=== PATIENT | male | born 1950 | race Caucasian/White ===

== ENCOUNTER → 2017-02-02 | Outpatient (CLI) | payer MEDICARE, OTHER ==
[~2017-02-02] MED LIST: AMIODARONE HYD200 MG PO; AMLODIPINE10 MG PO; ASPIRIN EC325 MG PO; AVAPRO75 MG PO; CARVEDILOL12.5 MG PO; CEPHALEXIN MON500 MG PO; DAILY MULTIPLE1 TA8 PO; DIGOXIN0.25 M1 PO; FISH OIL1000 MG PO; FLOMAX0.4 MG PO; HYDROCHLOROTH12.5 M1 PO; IMDUR 30MG. TAB30 MG PO; ISOSORBIDE DINI30 MG PO; LIPITOR40 MG PO; METOPROLOL25 MG PO; MOBIC15 MG PO; PLAVIX75 MG PO; PRAVASTATIN 20M20 MG PO; SPIRONOLACTONE25 M1 PO; XARELTO20 MG PO
--- NOTE | 2017-02-08 08:39 | RADIOLOGY REPORT PS360 ---
MRI-LOW EXT ANY JOINT W/O-LT MRI LEFT KNEE HISTORY: PRIMARY OSTEOARTHRITIS OF LEFT KNEE . Lateral knee pain 1 month pain with bending or extending knee.Patient Age: 66 years: Male Ordering Physician: TINY KOROMA MD TECHNIQUE: Multiplanar multisequence imaging performed on 1.5 Shandra MRI.. Left knee COMPARISON :3 views the left knee 12/26/2016 FINDINGS Plain films from 12/26/2016 showed joint space narrowing most evident at the medial compartment MRI from 01/12/2017 showed prominent bone marrow edema beneath tibial spines most evident as well as beneath medial tibial plateau. . Today's MR shows a collection of numerous subchondral, degenerative cyst seen beneath the PCL insertion and beneath the posterior tibial spine region,, with bone edema surrounding this and extending anteriorly towards the region beneath the anterior tibial spine. This collection of subchondral cyst spans up to 3.5 cm AP within the distal bone edema extending even further beyond this with overall signal abnormalities here for 0.5 cm AP.. There are some subchondral cystic changes beneath the ACL insertion as well. It On the detailed angled ACL views ( along with the coronal views) it appears ACL may indeed remain intact although increased signal at its inferior aspect/anterior tibial spine insertion region. Difficult to exclude partial tear in this latter area. The PCL has slight increased signal throughout which could reflect interstitial tear here. MEDIAL COMPARTMENT. Osteoarthritis most pronounced medial compartment . Diffuse chondral thinning & scuffing throughout the medial compartment with associated medial meniscal tear. Extensive increased signal, reactive bone changes are seen on both both sides narrowed joint space, but most pronounced at medial aspect medial tibial plateau,. Lesser pronounced reactive bone changes along with scattered small osteochondral irregularities are seen at the posterior aspect of the medial femoral condyle... Extensive MEDIAL MENISCAL TEAR, involving body and posterior horn. Degeneration, diminution & prominent tear involving body & extending into the posterior horn of medial meniscus evident- only small fragments remaining peripherally in this region. I do not see a well-defined meniscal flap or meniscal fragment but certainly could arise a with this pattern. Lateral compartment. Mild chondral thinning most evident towards the notch. The lateral meniscus for the most part is intact.. Only question of possible tiny minor meniscal tear involving the inferior surface posterior horn as it approaches the meniscal root. This is noted on sagittal images. MCL & lateral collateral ligaments appear intact. Generous joint effusion most notable at suprapatella bursa. Only small Peterson's cyst/synovial cyst formation extending superior to the knee and residing to the insertion of the medial head of gastrocnemius on sagittal and 12 axial image 8, 7. .. Patellofemoral joint. The cartilage seems to be fairly well-maintained at the posterior patella with only some mild signal changes and possible minor chondral irregularity at the lateral facet. But unimpressive. Minimal spurring about the margins of patella. Normal position patella. Patellar tendon and quadriceps tendon grossly unremarkable. There is some mild edema anterior to, overlying patellar tendon across correlation. 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 Prominent degenerative changes at the knee, associated prominent joint effusion. Small Peterson's cyst superior to knee joint surrounding the insertion of the medial head gastrocnemius 2. Most pronounced degenerative changes at the Medial Compartment.. OA here appear to have progressed, since previous radiographs. .Prominent Diffuse chondral thinning & scuffing medial compartment. Prominent associated reactive signal changes & findings on both sides of joint . .Prominent MEDIAL MENISCAL TEAR involving body and posterior horn 2. Numerous subchondral cyst, & geode is seen beneath it the PCL insertion posterior tibial spine and extending to the beneath the anterior tibial spine. This yields a large area of increased bone signal with reactive bone changes surrounding these subchondral cyst. Overall abnormal signal changes span 4.5 cm up to AP, X 3.5 cm transverse here beneath the tibial spines 3. I with the above there appears to be increased signal at inferior ACL likely reflecting mucoid degeneration inferior ACL with some cystic changes at ACL insertion. I do not believe ACL is ruptured.. Most likely remains intact although difficult to confirm such totally. . PCL. Increased interstitial signal which may reflect mucoid degeneration or interstitial tear but but no rupture or transection.. 4.. I do not see a fracture here at proximal tibia as questioned on previous MRI
== END ==
LOC: RAD 10:14
DX: M17.12 Unilateral primary osteoarthritis, left knee (principal)

== ENCOUNTER → 2017-02-19 | Outpatient (CLI) | payer MEDICARE, OTHER ==
--- NOTE | 2017-02-19 11:08 | RADIOLOGY REPORT PS360 ---
CHEST(2 VIEWS-NOT PORTABLE) HISTORY: ASHD, AFIB, AMIODRONE THERAPY, HTN, SOB ORDERING PHYSICIAN: MONIQUE SEN MD PATIENT AGE: 66 years COMPARISON: 04/04/2016 FINDINGS: The cardiomediastinal silhouette and pulmonary vascularity are within normal limits. The lungs are clear without infiltrates, suspicious nodules, or pleural effusions. No acute bony abnormalities. No evidence of pulmonary fibrosis IMPRESSION: No change with no acute finding.
[2017-02-19 13:04] LABS: BILIRUBIN, INDIRECT 0.58 mg/dL (0-0.9)
== END ==
LOC: LAB 10:25
PROVIDERS: Internal Medicine Cardiovascular Disease
DX: I25.10 Atherosclerotic heart disease of native coronary artery without angina pectoris (principal); I48.91 Unspecified atrial fibrillation; I10 Essential (primary) hypertension; E78.5 Hyperlipidemia, unspecified; G47.33 Obstructive sleep apnea (adult) (pediatric); Z79.899 Other long term (current) drug therapy

== ENCOUNTER → 2017-02-22 | Outpatient (CLI) | payer MEDICARE, OTHER ==
--- NOTE | 2017-02-22 13:43 | RADIOLOGY REPORT PS360 ---
LOWER LEG-RT HISTORY: RT TIBIA PAIN ORDERING PHYSICIAN: TINY KOROMA MD PATIENT AGE: 66 years COMPARISON: None FINDINGS: Mild osteoarthritic changes are present involving the knee. No acute fracture or dislocation of the tibia or fibula. No lytic or blastic change. There is a well-circumscribed calcific density at the tip of the lateral malleolus consistent with either an old injury or an accessory center of ossification. IMPRESSION: 1. No acute finding. 2. Osteoarthritic changes of the knee. 3. Old fracture versus accessory center of ossification at the tip of the lateral malleolus
== END ==
LOC: RAD 10:51
DX: M89.8X6 Other specified disorders of bone, lower leg (principal)

== ENCOUNTER 2017-04-16 10:43 | Day surgery (SDC) | payer MEDICARE, OTHER ==
[~2017-04-16] VITALS: Ht 182.9 cm; Wt 104.3 kg
--- NOTE | 2017-04-16 16:17 | Anesthesia Record ---
Anesthesia Record Part I Total IV fluids: 1800 EBL (ml): 0 Urine Output: 0 B/P: 149/87 % SaO2: 96 Pulse: 76 Resps: 12 Temp: 98.5 Patient is: Drowsy, Stable Stable to PACU at: 1615 at 1615
--- NOTE | 2017-04-16 16:18 | Anesthesia Record ---
Anesthesia Record Part II Discharge time: 1645 Destination: Same day surgery PACU nurse assessment review? Yes Patient is: Awake, Stable Anesthesia complications? No at 161
--- NOTE | 2017-04-16 16:43 | RADIOLOGY REPORT PS360 ---
KNEE-LIMITED 2 VIEWS-LT HISTORY: CALCIUM SULFATE INJECTION, OR ORDERING PHYSICIAN: TINY KOROMA MD PATIENT AGE: 66 years COMPARISON: None FINDINGS: Multiple images submitted with the C-arm show placement of the needle in the medial intra-articular region of the knee with trochars in both the medial femoral condyle and lateral tibial plateau with injection of hyperdense material into the interspinous region of the proximal tibia and the medial femoral condyle. IMPRESSION: Status post subcondylar injection of the medial femoral condyle and the interspinous region of the proximal tibia
[2017-04-16 18:09] VITALS: BP 147/97
--- NOTE | 2017-04-16 18:58 | Operative Note ---
Procedure/Operative Record Date of Procedure: 04/16/17 Referring physician: Dr. Burdick Pre-op diagnosis: 1. Primary osteoarthritis, Left knee 2. Complex degenerative medial meniscal tear, left knee 3. Chronic bone marrow lesion/microfracture of medial condyle of left femur 4. Chronic bone marrow lesion/microfracture central and medialtibial plateau, left knee Post-op diagnosis: 1. Primary osteoarthritis, Left knee 2. Complex degenerative tear medial meniscus, LEFT knee 3. Complex degenerative tear lateral meniscus, LEFT knee 4. Chronic bone marrow lesion/microfracture of medial condyle, left femur 5. Chronic bone marrow lesion/microfracture central and medialtibial plateau, left knee Procedure performed: 1. Examination of LEFT knee under anesthesia 2. Arthroscopic partial medial meniscectomy, LEFT knee 3. Arthroscopic partial lateral meniscectomy, LEFT knee 4. Arthroscopic chondroplasty, all 3 compartments, LEFT knee 5. Sub-chondroplasty procedure central and medial tibial plateau, LEFT knee 6. Sub-chondroplasty procedure medial femoral condyle, LEFT knee Surgeon: Franci HERRERA, Kurt Prasad Maintenance Instructor(s): Dora Esparza Anesthesia: General Indications: Patient is a 66-year-old male with left knee arthritis. He failed to respond satisfactorily to conservative management. The MRI scan of his LEFT knee is showing chronic bone marrow lesions (reactive bony edema) indicative of stress/ microfractures over medial femoral condyle and medial and central tibial plateau. He also has degenerative changes in all 3 compartments of the knee and degenerative medial meniscal tears. The surgical management option which includes LEFT knee arthroscopy, resection of the torn meniscus, debridement/ chondroplasty as needed and subchondroplasty procedure for the medial femoral condyle and the tibial plateau is indicated to relieve the pain and improve function of his knee. Findings: Examination of the LEFT knee under anesthesia, showed a stable knee joint. Knee range of motion included flexion from 5 to 130; 5 of varus alignment noted. Operative findings showed diffuse grade 2 degenerative changes over the patellofemoral joint and grade 3-4 changes over the medial and lateral compartments. There was significant synovitis and debris in the knee. There was extensive degenerative tearing involving both the medial and lateral menisci. The anterior cruciate ligament was noted to be intact. Correlating the MRI findings with the arthroscopic findings we have decided to perform sub- chondroplasty procedure for the medial femoral condyle and medial and central tibial plateau. Small amount of knee effusion noted. Description of procedure: On the day of the procedure the patient was met in the preoperative area and positively identified. A physical examination was performed and documented. The limb was marked. I again discussed the diagnosis, natural history and management options including both nonsurgical and surgical. I discussed the proposed surgical procedure, risks and benefits and alternatives in detail. The complications discussed include but are not limited to infection, injury to nerves and blood vessels, injury to the ligaments and tendons, knee stiffness, arthrofibrosis, incomplete relief, incomplete functional recovery, DVT, PE, CRPS , complications related to anesthesia including heart attack, stroke and even . I have also discussed about the likely need for further surgery in future. I told him that there were no guarantees with surgery; he could be no better or even worse. We also discussed the postoperative recovery and rehabilitation protocol. I believe the patient to be well informed with regard to the proposed surgery. I told him that it could take few months for full recovery of the knee after surgery. He expressed a full understanding and wished to proceed with the planned surgery. A physical examination was performed and documented. The consent form was reviewed and signed. The patient was brought to the operating room and placed supine on the operating table. All the bony prominences were appropriately padded. A general anesthesia was administered by the anesthesia team. A well-padded tourniquet cuff was placed over the left upper thigh. Examination of the left knee under anesthesia was performed. A small amount of knee effusion was noted. The examination showed a stable knee joint. Knee range of motion included flexion from 5 to 130; 5 of varus alignment noted. The LEFT knee was then prepped and draped in the usual sterile fashion. A preprocedure timeout was performed as per protocol. Administration of prophylactic IV antibiotics was confirmed with the anesthetic team. The arthroscopic portals were marked on the skin. The limb was exsanguinated with Esmarch bandage and the tourniquet was inflated to 300 mmHg- see the nursing notes for tourniquet time. I then made an anterolateral arthroscopic portal and introduced the arthroscope and performed the arthroscopic knee examination. I then created an anteromedial portal under direct vision. Findings included diffuse grade 2 degenerative changes over the patellofemoral joint and grade 3-4 changes over the medial and lateral compartments. There was significant synovitis and debris in the knee. There was extensive degenerative tearing involving both the medial and lateral menisci. The anterior cruciate ligament was noted to be intact. Correlating the MRI findings with the arthroscopic findings we have decided to perform sub- chondroplasty procedure for the medial femoral condyle and medial and central tibial plateau. Small amount of knee joint effusion noted. After performing a thorough arthroscopic examination, I proceeded to perform partial medial and partial lateral meniscectomy and chondroplasty of all 3 compartments. Using the arthroscopic instruments and shaver, I performed the partial medial meniscectomy and partial lateral meniscectomy to a stable margin. I then performed chondroplasty of all 3 compartments using curette and arthroscopic shaver, resecting the loose chondral flaps to a stable edge. We then proceeded to perform sub-chondroplasty procedure for the medial and central tibial plateau and the medial femoral condyle. Using the C-arm control for guidance, I introduced the 3 mm side delivery AccuPort cannula into the medial tibial plateau and advanced it to the center of the tibial plateau. After confirming satisfactory position, I injected premixed (on the back table with saline) AccuFill BSM under fluoroscopic guidance. As I injected, I slowly withdrew the needle to cover the entire central and medial tibial plateau. A total of 8 cc of AccuFill BSM was injected into the tibial plateau. Simultaneously a second 3 mm AccuPort cannula was placed into the medial femoral condyle under fluoroscopic guidance. After satisfactory positioning of the cannula, I injected 3 cc of premixed AccuFill BSM in to the medial femoral condyle under fluoroscopic guidance. After confirming satisfactory injection of the AccuFill BSM, we left the needles in place for about 8 minutes for this to set. After this the needles were removed and a repeat knee arthroscopy was performed. We have noticed no extrusion of the AccuFill into the knee joint. The knee joint was thoroughly washed out at the end of the procedure. The instruments were removed, the knee joint was emptied of the irrigating fluid and the arthroscopic sheath was removed. Fluoroscopic images were obtained and stored for future reference. The portals were sutured with 4-0 Ethilon figure- of-eight sutures. I then injected 40 mL of Marcaine with epinephrine around the portals/soft tissue as well as into the knee joint for postoperative pain relief. Sterile dressings and the pressure bandages were applied. The tourniquet cuff was deflated and removed from the thigh. The patient was then reversed from the anesthetic and transferred onto the [facility]. He was then transported to the postoperative recovery area in stable condition. He tolerated the procedure well and there were no immediate complications. The swab needle and instruments counts were correct according to scrub team at the end of the procedure. Following recovery from the anesthetic the patient was discharged home with appropriate written instructions. Follow- up in my office in 2-3 days time for dressing changes. EBL (ml): 2 Implant: ZimmerAccuFill BSM was used for sub-chondroplasty procedure. Industry junior sales representative: Faye Leggett from [employer] Complications: None Specimens: None at 1847
--- NOTE | 2017-04-20 11:59 | RADIOLOGY REPORT PS360 ---
KNEE-3 VIEWS-LT HISTORY: S/P ARTHROSCOPIC RMM,PLM,CHONDROPLASTY W/SUB CHONDROPLASTY ORDERING PHYSICIAN: TINY KOROMA MD PATIENT AGE: 66 years COMPARISON: 10/21/2014 FINDINGS: Status post subchondral plasty in the proximal tibia centrally and medially and medial femoral condyle with postsurgical defect and hyperdensity from the calcium sulfate injection. Small amount soft tissue gas is present along the inferior aspect of the patella and knee joint. No acute fracture or dislocation. There are mild osteoarthritic changes involving all 3 compartments. IMPRESSION: Status post subchondral plasty as described above with osteoarthritic change
== END 2017-04-16 17:39 | disposition home or self-care (01) ==
LOC: SDC 10:43
PROVIDERS: Orthopaedic Surgery
PROC: 0SBD4ZZ Excision of Left Knee Joint, Percutaneous Endoscopic Approach (ICD-10-PCS; 2017-04-16)
PROC: 0SBD4ZZ Excision of Left Knee Joint, Percutaneous Endoscopic Approach (ICD-10-PCS; 2017-04-16)
PROC: 3E0V3GC Introduction of Other Therapeutic Substance into Bones, Percutaneous Approach (ICD-10-PCS; 2017-04-16)
PROC: 0SBD4ZZ Excision of Left Knee Joint, Percutaneous Endoscopic Approach (ICD-10-PCS; principal; 2017-04-16 12:30)
DX: M17.12 Unilateral primary osteoarthritis, left knee (principal); M84.352A Stress fracture, left femur, initial encounter for fracture; M84.362A Stress fracture, left tibia, initial encounter for fracture; M23.201 Derangement of unspecified lateral meniscus due to old tear or injury, left knee; M23.204 Derangement of unspecified medial meniscus due to old tear or injury, left knee
CPT/HCPCS: C1713; J2405

== ENCOUNTER → 2017-04-19 | Outpatient (CLI) | payer MEDICARE, OTHER | LOC: RT 09:37 | DX: I48.0 Paroxysmal atrial fibrillation (principal) ==

== ENCOUNTER → 2017-05-16 | Outpatient (CLI) | payer MEDICARE, OTHER ==
--- NOTE | 2017-05-16 16:36 | RADIOLOGY REPORT PS360 ---
MRI-BRAIN W/O Ordering Physician: Rodrigo Antoine MD Patient Age: 66 years: Male HISTORY: MEMORY LOSS.? Dementia, fuzzy feeling in head. Memory loss. Headaches.. Symptoms 2 months. TECHNIQUE: Multiplanar FLAIR, T1, T2 weighted images along with axial diffusion/ADC imaging performed on 1.5 T. Siemens, MRI. Postcontrast imaging Following 12 mL ProHance T1-weighted images axial & coronal plane performed COMPARISON : FINDINGS No mass lesion. No abnormal areas of enhancement. Mild cerebral atrophy typical to slightly advanced for age. A few scattered tiny high signal deep white matter deep white matter and basal ganglia reflecting ischemic gliotic changes, commonly encountered in maturing aging brain. These scattered pinpoint deep white matter small foci of are slightly more evident at the anterior left cerebral hemisphere superiorly.. Also note generous perivascular spaces throughout the basal ganglia and multani radiata region. Nonspecific feature but may reflect underlying hypertension.... . No mass lesions. No territorial infarct. Sella appears normal. The sagittal image extends down to the C 3/4 level and I suspect there is some narrowing of the cervical cord at this level but this region not optimally viewed. & There is field distortion. Posterior fossa appears satisfactory. CP angles clear. Right and left IAC unremarkable. Orbits unremarkable. Suprasellar region satisfactory; including mildly ectatic internal carotid arteries. Paranasal sinuses are clear & The mastoid air cells appear satisfactory IMPRESSION: . 1. Mild cerebral atrophy.-perhaps very slightly advanced for age. 2. No territorial infarct. No mass lesion. No prominent findings otherwise 2. A few Scattered tiny small vessel deep white matter high signal fociCerebral hemispheres bilaterally. Only very slightly more numerous anterior left cerebral hemisphere. 3 Generous perivascular spaces throughout basal ganglia. Nonspecific but can be seen with underlying hypertension. Clinical correlation required.
== END ==
LOC: RAD 15:00
DX: R41.3 Other amnesia (principal)